=== PATIENT | male | born 1975 | race Caucasian/White ===

== ENCOUNTER 2017-03-27 19:53 | Emergency (ER) | payer BC ==
--- NOTE | 2017-03-27 20:10 | EDM.PDOC ---
ED HPI GENERAL MEDICAL PROBLEM - General Chief Complaint: Upper Extremity Injury/Pain Stated Complaint: SMASHED RT HAND Time Seen by Provider: 03/27/17 20:09 Source of Information: Reports: Patient - History of Present Illness INITIAL COMMENTS - FREE TEXT/NARRATIVE: HISTORY AND PHYSICAL: History of present illness: Patient presents after a crush injury of his hand, right hand was crushed on a counterweight in a cattle trailer this morning, he completed his work day and presents as such her limb is neurovascularly intact pulses 2+ No fever nausea vomiting chills sweats no other injury there is abrasion to the back of his hand over the third digit, tetanus status is up-to-date within the last year Review of systems: As per history of present illness and below otherwise all systems reviewed and negative. Past medical history: As per history of present illness and as reviewed below otherwise noncontributory. Surgical history: As per history of present illness and as reviewed below otherwise noncontributory. Social history: No reported history of drug or alcohol abuse. Family history: As per history of present illness and as reviewed below otherwise noncontributory. Physical exam: HEENT: Atraumatic, normocephalic, pupils reactive, negative for conjunctival pallor or scleral icterus, mucous membranes moist, throat clear, neck supple, nontender, trachea midline. Lungs: Clear to auscultation, breath sounds equal bilaterally, chest nontender. Heart: S1S2, regular, negative for clicks, rubs, or JVD. Abdomen: Soft, nondistended, nontender. Negative for masses or hepatosplenomegaly. Negative for costovertebral tenderness. Pelvis: Stable nontender. Genitourinary: Deferred. Rectal: Deferred. Extremities: Atraumatic, negative for cords or calf pain. Neurovascular unremarkable. Neuro: Awake, alert, oriented. Cranial nerves II through XII unremarkable. Cerebellum unremarkable. Motor and sensory unremarkable throughout. Exam nonfocal. Diagnostics: [Right hand 3 views] Therapeutics: [] Impression: [Right hand pain] Definitive disposition and diagnosis as appropriate pending reevaluation and review of above. Right Hand Pain Score (Numeric/FACES): 8 - Related Data Allergies Allergy/AdvReac Type Severity Reaction Status Date / Time Bleach (Sodium Hypochlorite) Allergy Hives Verified 03/27/17 20:07 ciprofloxacin Allergy Rash Verified 03/27/17 20:07 cipro Allergy Rash Uncoded 03/27/17 20:07 Home Meds: Home Meds . [No Known Home Meds] 03/27/17 [History] Review of Systems - Review of Systems Review Of Systems: ROS reveals no pertinent complaints other than HPI. ED EXAM, GENERAL - Physical Exam Exam: See Below Course - Vital Signs Last Recorded V/S: Last Vital Signs Temp 36.4 C 03/27/17 20:02 Pulse 90 03/27/17 20:02 Resp 17 03/27/17 20:02 BP 122/98 H 03/27/17 20:02 Pulse Ox 95 03/27/17 20:02 - Orders/Labs/Meds Orders: Active Orders 24 hr Category Date Time Status Hand Comp Min 3V Rt [CR] Stat Exams 03/27/17 20:09 Taken Departure - Departure Time of Disposition: 20:49 Disposition: Home, Self-Care 01 Condition: Good Clinical Impression: Contusion, Abrasion - Discharge Information Referrals: PCP,None [Primary Care Provider] - Forms: ED Department Discharge Additional Instructions: Splint for comfort Neosporin/Bandage as needed Ibuprofen 400 mg 3 times daily 7-10 days Follow-up with primary care 2 weeks sooner as needed The following information is given to patients seen in the emergency department who are being discharged to home. This information is to outline your options for follow-up care. We provide all patients seen in our emergency department with a follow-up referral. The need for follow-up, as well as the timing and circumstances, are variable depending upon the specifics of your emergency department visit. If you don't have a primary care physician on staff, we will provide you with a referral. We always advise you to contact your personal physician following an emergency department visit to inform them of the circumstance of the visit and for follow-up with them and/or the need for any referrals to a consulting specialist. The emergency department will also refer you to a specialist when appropriate. This referral assures that you have the opportunity for follow-up care with a specialist. All of these measure are taken in an effort to provide you with optimal care, which includes your follow-up. Under all circumstances we always encourage you to contact your private physician who remains a resource for coordinating your care. When calling for follow-up care, please make the office aware that this follow-up is from your recent emergency room visit. If for any reason you are refused follow-up, please contact the [facility] emergency department at and asked to speak to the emergency department charge nurse. - My Orders Last 24 Hours: My Active Orders 03/27/17 20:09 Hand Comp Min 3V Rt [CR] Stat - Assessment/Plan Last 24 Hours: My Active Orders 03/27/17 20:09 Hand Comp Min 3V Rt [CR] Stat
--- NOTE | 2017-03-29 14:06 | CR ---
EXAM DATE: 03/27/17 PATIENT'S AGE: 42 Patient: LORA SOLIZ Facility: [place], [place] Site . Site : 1975 Study: XRay Extremity Right hand [id number]/28/2017 8:28:56 PM Ordering Physician: Pham Bowens Final Report: INDICATION: pain INDICATION: Right hand pain. TECHNIQUE: Three view. Findings: No fracture is seen of the right hand. The joint spaces appear relatively well preserved. IMPRESSION: No acute fracture is seen of the right hand. Dictated by Nikhil Walker MD @ 03/27/2017 8:46:38 PM Dictated by: Nikhil Walker MD @ 03/27/2017 20:46:56 (Electronic Signature) Report Signed by Proxy. [facility]
== END 2017-03-27 21:12 | disposition home or self-care (01) ==
LOC: MW.ED 19:53
DX: S60.221A Contusion of right hand, initial encounter (principal); S60.511A Abrasion of right hand, initial encounter; Z88.1 Allergy status to other antibiotic agents; Z91.09 Other allergy status, other than to drugs and biological substances; W23.1XXA Caught, crushed, jammed, or pinched between stationary objects, initial encounter
CPT/HCPCS: 73130-26-RT; 73130-RT; 99281; 99283

== ENCOUNTER 2017-10-19 23:54 | Observation (INO) | payer BC ==
--- NOTE | 2017-10-20 00:11 | EDM.PDOC ---
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 He states this is a chronic condition followed by podiatry S[facility]. Recommended admission and IV antibiotics and further workup he flatly refuses stating he has dealt with this for years and requires antibiotics and pain medicine he prefers care for this on his own at home and not be admitted. I recommended as he is living here in [place] now he should establish with podiatry and/or return if symptoms persist or worsen No fever nausea vomiting chills sweats he only complains of the foot pain 8 out of 10 nonradiating ] Review of systems: As per history of present illness and below otherwise all systems reviewed and negative. Past medical history: As per history of present illness and as reviewed below otherwise noncontributory. Surgical history: As per history of present illness and as reviewed below otherwise noncontributory. Social history: No reported history of drug or alcohol abuse. Family history: As per history of present illness and as reviewed below otherwise noncontributory. Physical exam: HEENT: Atraumatic, normocephalic, pupils reactive, negative for conjunctival pallor or scleral icterus, mucous membranes moist, throat clear, neck supple, nontender, trachea midline. Lungs: Clear to auscultation, breath sounds equal bilaterally, chest nontender. Heart: S1S2, regular, negative for clicks, rubs, or JVD. Abdomen: Soft, nondistended, nontender. Negative for masses or hepatosplenomegaly. Negative for costovertebral tenderness. Pelvis: Stable nontender. Genitourinary: Deferred. Rectal: Deferred. Extremities: Atraumatic, negative for cords or calf pain. Neurovascular unremarkable. Neuro: Awake, alert, oriented. Cranial nerves II through XII unremarkable. Cerebellum unremarkable. Motor and sensory unremarkable throughout. Exam nonfocal. Diagnostics: [X-ray right foot ] Therapeutics: Salineno 5 mg by mouth now Bactrim double strength by mouth twice a day #20 no refill ] Some soaks 3 times a day Patient refused admission Impression: [ cellulitis right foot ] Definitive disposition and diagnosis as appropriate pending reevaluation and review of above. right foot Pain Score (Numeric/FACES): 10 - Related Data Allergies Allergy/AdvReac Type Severity Reaction Status Date / Time Bleach (Sodium Hypochlorite) Allergy Hives Verified 10/20/17 00:08 ciprofloxacin Allergy Rash Verified 10/20/17 00:08 cipro Allergy Rash Uncoded 10/20/17 00:08 Home Meds: Home Meds . [No Known Home Meds] 03/27/17 [History] Past Medical History - Past Health History Medical/Surgical History: Denies Medical/Surgical History Musculoskeletal History: Reports: None - Infectious Disease History Infectious Disease History: Reports: Chicken Pox - Past Surgical History Other Musculoskeletal Surgeries/Procedures:: back surgery Social & Family History - Family History Family Medical History: Noncontributory - Caffeine Use Caffeine Use: Reports: Coffee Review of Systems - Review of Systems Review Of Systems: See Below ED EXAM, GENERAL - Physical Exam Exam: See Below Course - Vital Signs Last Recorded V/S: Last Vital Signs Temp 98 F 10/19/17 23:54 Pulse 87 10/19/17 23:54 Resp 18 10/19/17 23:54 BP 113/73 10/19/17 23:54 Pulse Ox 94 L 10/19/17 23:54 - Orders/Labs/Meds Orders: Active Orders 24 hr Category Date Time Status Foot Comp Min 3V Rt [CR] Stat Exams 10/20/17 00:09 Taken CULTURE WOUND [RM] Stat Lab 10/20/17 00:41 Ordered URIC ACID [CHEM] Stat Lab 10/20/17 00:19 Received Labs: Laboratory Tests 10/20/17 Range/Units 00:19 WBC 11.29 H (4.0-11.0) K/uL RBC 5.00 (4.50-5.90) M/uL Hgb 16.1 (13.0-17.0) g/dL Hct 47.6 (38.0-50.0) % MCV 95.2 (80.0-98.0) fL MCH 32.2 H (27.0-32.0) pg MCHC 33.8 (31.0-37.0) g/dL RDW Std Deviation 45.7 (28.0-62.0) fl RDW Coeff of Waqar 13 (11.0-15.0) % Plt Count 166 (150-400) K/uL MPV 11.00 (7.40-12.00) fL Neut % (Auto) 61.9 (48.0-80.0) % Lymph % (Auto) 27.0 (16.0-40.0) % Martin % (Auto) 8.7 (0.0-15.0) % Eos % (Auto) 2.1 (0.0-7.0) % Baso % (Auto) 0.3 (0.0-1.5) % Neut # (Auto) 7.0 H (1.4-5.7) K/uL Lymph # (Auto) 3.1 H (0.6-2.4) K/uL Martin # (Auto) 1.0 H (0.0-0.8) K/uL Eos # (Auto) 0.2 (0.0-0.7) K/uL Baso # (Auto) 0.0 (0.0-0.1) K/uL Meds: Medications Discontinued Medications Generic Name Dose Route Start Last Admin Trade Name Freq PRN Reason Stop Dose Admin Hydrocodone Bitart/Acetaminophen 1 tab 10/20/17 00:40 Salineno 325-5 Mg PO 10/20/17 00:41 ONETIME ONE Departure - Departure Time of Disposition: 00:45 Disposition: Home, Self-Care 01 Condition: Good Clinical Impression: Cellulitis, Foot pain - Discharge Information Referrals: PCP,None [Primary Care Provider] - Forms: ED Department Discharge Additional Instructions: Medication as prescribed Return if symptoms persist or worsen Follow-up with podi, call number below to schedule appropriate follow-up [facility] Primary Care - Podiatry [address] [place] [address] The following information is given to patients seen in the emergency department who are being discharged to home. This information is to outline your options for follow-up care. We provide all patients seen in our emergency department with a follow-up referral. The need for follow-up, as well as the timing and circumstances, are variable depending upon the specifics of your emergency department visit. If you don't have a primary care physician on staff, we will provide you with a referral. We always advise you to contact your personal physician following an emergency department visit to inform them of the circumstance of the visit and for follow-up with them and/or the need for any referrals to a consulting specialist. The emergency department will also refer you to a specialist when appropriate. This referral assures that you have the opportunity for follow-up care with a specialist. All of these measure are taken in an effort to provide you with optimal care, which includes your follow-up. Under all circumstances we always encourage you to contact your private physician who remains a resource for coordinating your care. When calling for follow-up care, please make the office aware that this follow-up is from your recent emergency room visit. If for any reason you are refused follow-up, please contact the [facility] emergency department at and asked to speak to the emergency department charge nurse. - My Orders Last 24 Hours: My Active Orders 10/20/17 00:09 Foot Comp Min 3V Rt [CR] Stat 10/20/17 00:19 URIC ACID [CHEM] Stat 10/20/17 00:41 CULTURE WOUND [RM] Stat - Assessment/Plan Last 24 Hours: My Active Orders 10/20/17 00:09 Foot Comp Min 3V Rt [CR] Stat 10/20/17 00:19 URIC ACID [CHEM] Stat 10/20/17 00:41 CULTURE WOUND [RM] Stat
[2017-10-20] MEDS ORDERED: Acetaminophen/HYDROcodone 325-5 MG Tab PO ONE (00:40)
[2017-10-20] MEDS ORDERED: Sodium Chloride 0.9% 1,000 ML IV SCH (01:00)
[2017-10-20] MEDS ORDERED: Morphine 2 MG/ML Syringe IVPUSH ONE (01:13)
[2017-10-20 01:14] LABS: CHLORIDE,CL 103 mmol/L (98-107); SODIUM,NA 138 mmol/L (136-148)
[2017-10-20] MEDS ORDERED: Clindamycin Phosphate in D5W 50 ML IV ONE (02:43)
[2017-10-20] MEDS ORDERED: Clindamycin Phosphate in D5W 300 MG in Premix Bag 1 BAG IV ONE ×2 (02:53)
[2017-10-20] MEDS ORDERED: Acetaminophen/oxyCODONE 325-5 MG Tab PO PRN (04:03)
[2017-10-20] MEDS ORDERED: Lactated Ringers 1,000 ML IV SCH (04:15)
[2017-10-20] MEDS: Morphine 4 MG/ML Syringe IVPUSH PRN ×3 (04:20→21:18)
[2017-10-20] MEDS: Piperacillin/Tazobactam 2.25 GM in Sodium Chloride 0.9% 50 ML IV SCH ×2 (04:24→10:36)
[2017-10-20] MEDS: Nicotine 14 MG/24 Hr Patch TRDERM SCH (04:24)
[2017-10-20 05:43] LABS: CHLORIDE,CL 104 mmol/L (98-107); SODIUM,NA 139 mmol/L (136-148)
--- NOTE | 2017-10-20 07:48 | PCM.HP ---
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 He didn't noticed the pain right away but it started to increase with noticed more bright redness than usual to his toes. He denies fevers, chills, rigors, chest pain or SOB. No calf pain or tenderness. No edema. He reports he puts bacitracin and non-adherent pads on his toes daily to protect them. Recently he did use some coban type material to secure the dressing and then he noticed some burning sensation to his skin after he used this. He stopped using this wrap a few days ago. He denies any purulent drainage from any open ulcerated areas. He currently is living here, but when he was back home he followed regularly with a [employer], but has not seen one in "awhile." He denies CAD, DM. He does smoke 1/2 to 1 ppd of cigarettes. No alcohol use or recreational drug use. In the ED leukocytosis noted at 11,290, BMP WNL. VS stable, afebrile. Wound culture and BC obtained. 3V foot xray obtained which revealed amputation of the 3rd toe at the metatarsophalangeal joint. No focal osteopenia to suggest osteomyelitis. Consider MRI or 3 phase bone scan if clinically indicated as these are both more sensitive for the evaluation of osteomyelitis. He was admitted observation for cellulitis and foot ulcerations. right foot Pain Score (Numeric/FACES): 10 - Related Data Allergies/Adverse Reactions: Allergies Allergy/AdvReac Type Severity Reaction Status Date / Time Bleach (Sodium Hypochlorite) Allergy Hives Verified 10/20/17 00:08 ciprofloxacin Allergy Rash Verified 10/20/17 00:08 cipro Allergy Rash Uncoded 10/20/17 00:08 Home Medications: Home Meds . [No Known Home Meds] 03/27/17 [History] Past Medical History - Past Health History Medical/Surgical History: Denies Medical/Surgical History Cardiovascular History: Reports: None. Denies: CAD, High Cholesterol, Hypertension, VT Respiratory History: Reports: None. Denies: COPD, PE Gastrointestinal History: Reports: None. Denies: GERD, GI Bleed Genitourinary History: Reports: None. Denies: Chronic Renal Insuffiency Musculoskeletal History: Reports: None Neurological History: Reports: None. Denies: CVA, TIA Endocrine/Metabolic History: Reports: None. Denies: Diabetes, Type II - Infectious Disease History Infectious Disease History: Reports: Chicken Pox - Past Surgical History Neurological Surgical History: Reports: Lumbar Spine (discectomy unsure of exact location.), Other (See Below) (amputation of 4th toe) Other Musculoskeletal Surgeries/Procedures:: back surgery Social & Family History - Family History Family Medical History: Noncontributory - Tobacco Use Smoking Status *Q: Current Every Day Smoker Years of Tobacco use: 20 Packs/Tins Daily: 0.5 Second Hand Smoke Exposure: No - Caffeine Use Caffeine Use: Reports: Coffee - Alcohol Use Alcohol Use History: No - Recreational Drug Use Recreational Drug Use: No - Living Situation & Occupation Occupation: Employed H&P Review of Systems - Review of Systems: Review Of Systems: See Below General: Reports: No Symptoms. Denies: Fever, Chills, Malaise, Weakness HEENT: Reports: No Symptoms. Denies: Headaches, Sinus Congestion, Sore Throat Pulmonary: Reports: No Symptoms. Denies: Shortness of Breath Cardiovascular: Reports: No Symptoms. Denies: Claudication Gastrointestinal: Reports: No Symptoms. Denies: Abdominal Pain, Black Stool, Bloody Stool, Nausea, Vomiting Genitourinary: Reports: No Symptoms. Denies: Dysuria, Frequency, Burning Musculoskeletal: Reports: Other (R foot pain). Denies: Neck Pain Skin: Reports: Erythema (R foot mainly to toes), Wound Neurological: Reports: No Symptoms Hematologic/Lymphatic: Reports: No Symptoms Immunologic: Reports: No Symptoms Exam - Exam Exam: See Below - Vital Signs Vital Signs: Last Vital Signs Temp 98 F 10/19/17 23:54 Pulse 78 10/20/17 03:00 Resp 18 10/20/17 03:00 BP 106/71 10/20/17 03:00 Pulse Ox 95 10/20/17 03:00 Weight: 82.4 kg - Exam General: Alert, Oriented, Cooperative HEENT: Conjunctiva Clear, Mucosa Moist & [place], Posterior Pharynx Clear Neck: Supple, Trachea Midline, 2 Lungs: Clear to Auscultation, Normal Respiratory Effort Cardiovascular: Regular Rate, Regular Rhythm GI/Abdominal Exam: Normal Bowel Sounds, Soft, Non-Tender, No Organomegaly, No Distention, No Abnormal Bruit, No Mass, Pelvis Stable Back Exam: Normal Inspection, Full Range of Motion, NT Extremities: Normal Range of Motion, No Pedal Edema Skin: Wound (multiple small abrasions to 2nd and 3rd toes no fluctuance noted. No obvious drainage. Large amount of bacitracin on toes from patient application with telfa dressing in place. Great toe spared. Port wine sharri noted. No erythema noted to dorsum of foot. Scant edema to toes. No necrotic tissue noted ) Neuro Extensive - Mental Status: Alert, Oriented x3, Normal Mood/Affect, Normal Cognition Neuro Extensive - Motor, Sensory, Reflexes: CN II-XII Intact Psychiatric: Alert, Normal Affect, Normal Mood - Patient Data Lab Results Last 24 hrs: Laboratory Results - last 24 hr 10/20/17 10/20/17 10/20/17 Range/Units 00:19 00:19 00:40 WBC 11.29 H (4.0-11.0) K/uL RBC 5.00 (4.50-5.90) M/uL Hgb 16.1 (13.0-17.0) g/dL Hct 47.6 (38.0-50.0) % MCV 95.2 (80.0-98.0) fL MCH 32.2 H (27.0-32.0) pg MCHC 33.8 (31.0-37.0) g/dL RDW Std Deviation 45.7 (28.0-62.0) fl RDW Coeff of Waqar 13 (11.0-15.0) % Plt Count 166 (150-400) K/uL MPV 11.00 (7.40-12.00) fL Neut % (Auto) 61.9 (48.0-80.0) % Lymph % (Auto) 27.0 (16.0-40.0) % [place] % (Auto) 8.7 (0.0-15.0) % Eos % (Auto) 2.1 (0.0-7.0) % Baso % (Auto) 0.3 (0.0-1.5) % Neut # (Auto) 7.0 H (1.4-5.7) K/uL Lymph # (Auto) 3.1 H (0.6-2.4) K/uL [place] # (Auto) 1.0 H (0.0-0.8) K/uL Eos # (Auto) 0.2 (0.0-0.7) K/uL Baso # (Auto) 0.0 (0.0-0.1) K/uL Nucleated RBC % /100WBC Nucleated RBCs # K/uL Sodium 138 (136-148) mmol/L Potassium 3.5 (3.5-5.1) mmol/L Chloride 103 (98-107) mmol/L Carbon Dioxide 26.6 (21.0-32.0) mmol/L BUN 18 (7.0-18.0) mg/dL Creatinine 1.1 (0.8-1.3) mg/dL Est Cr Clr Drug Dosing 92.22 mL/min Estimated GFR (MDRD) > 60.0 ml/min Glucose 122 H (74-106) mg/dL Uric Acid 5.2 (2.6-7.2) mg/dL Calcium 8.6 (8.5-10.1) mg/dL Total Bilirubin 0.4 (0.2-1.0) mg/dL AST 25 (15-37) IU/L ALT 35 (14-63) IU/L Alkaline Phosphatase 85 (46-116) U/L Total Protein 7.9 (6.4-8.2) g/dL Albumin 4.1 (3.4-5.0) g/dL Globulin 3.8 H (2.0-3.5) g/dL Albumin/Globulin Ratio 1.1 L (1.3-2.8) 10/20/17 10/20/17 Range/Units 05:08 05:08 WBC 10.04 (4.0-11.0) K/uL RBC 4.69 (4.50-5.90) M/uL Hgb 15.0 (13.0-17.0) g/dL Hct 44.4 (38.0-50.0) % MCV 94.7 (80.0-98.0) fL MCH 32.0 (27.0-32.0) pg MCHC 33.8 (31.0-37.0) g/dL RDW Std Deviation 46.8 (28.0-62.0) fl RDW Coeff of Waqar 14 (11.0-15.0) % Plt Count 141 L (150-400) K/uL MPV 11.30 (7.40-12.00) fL Neut % (Auto) 60.8 (48.0-80.0) % Lymph % (Auto) 28.3 (16.0-40.0) % [place] % (Auto) 8.5 (0.0-15.0) % Eos % (Auto) 2.1 (0.0-7.0) % Baso % (Auto) 0.3 (0.0-1.5) % Neut # (Auto) 6.1 H (1.4-5.7) K/uL Lymph # (Auto) 2.8 H (0.6-2.4) K/uL [place] # (Auto) 0.9 H (0.0-0.8) K/uL Eos # (Auto) 0.2 (0.0-0.7) K/uL Baso # (Auto) 0.0 (0.0-0.1) K/uL Nucleated RBC % 0.0 /100WBC Nucleated RBCs # 0 K/uL Sodium 139 (136-148) mmol/L Potassium 3.4 L (3.5-5.1) mmol/L Chloride 104 (98-107) mmol/L Carbon Dioxide 28.3 (21.0-32.0) mmol/L BUN 16 (7.0-18.0) mg/dL Creatinine 1.1 (0.8-1.3) mg/dL Est Cr Clr Drug Dosing 92.22 mL/min Estimated GFR (MDRD) > 60.0 ml/min Glucose 144 H (74-106) mg/dL Uric Acid (2.6-7.2) mg/dL Calcium 8.4 L (8.5-10.1) mg/dL Total Bilirubin (0.2-1.0) mg/dL AST (15-37) IU/L ALT (14-63) IU/L Alkaline Phosphatase (46-116) U/L Total Protein (6.4-8.2) g/dL Albumin (3.4-5.0) g/dL Globulin (2.0-3.5) g/dL Albumin/Globulin Ratio (1.3-2.8) Result Diagrams: 10/20/17 05:08 10/20/17 05:08 *Q Meaningful Use (ADM) - VTE Risk Assess *Q Each Risk Factor Represents 1 Point: Age 41 - 59 years, Obesity ( BMI > 25 kg/m2 ) Total Score 1 Point Risk Factors: 2 Each Risk Factor Represents 2 Points: None Total Score 2 Point Risk Factors: 0 Each Risk Factor Represents 3 Points: None Total Score 3 Point Risk Factors: 0 Each Risk Factor Represents 5 Points: None Total Score 5 Point Risk Factors: 0 Venous Thromboembolism Risk Factor Score *Q: 2 - Problem List (1) Cellulitis SNOMED Code(s): 454817539 ICD Code: L03.90 - CELLULITIS, UNSPECIFIED Status: Acute Current Visit: Yes Qualifiers: Site of cellulitis: extremity Site of cellulitis of extremity: lower extremity Laterality: right Qualified Code(s): L03.115 - Cellulitis of right lower limb (2) Chronic ulcer of right foot SNOMED Code(s): 302389663 ICD Code: L97.519 - NON-PRS CHRONIC ULCER OTH PRT RIGHT FOOT W UNSP SEVERITY Status: Chronic Current Visit: Yes Qualifiers: Non-pressure ulcer stage: limited to breakdown of skin Qualified Code(s): L97.511 - Non-pressure chronic ulcer of other part of right foot limited to breakdown of skin (3) Foot pain SNOMED Code(s): 59457602 ICD Code: M79.673 - PAIN IN UNSPECIFIED FOOT Status: Acute Current Visit : Yes Qualifiers: Laterality: right Qualified Code(s): M79.671 - Pain in right foot Problem List Initiated/Reviewed/Updated: Yes Orders Last 24hrs: Active Orders 24 hr Category Date Time Status Admission Status [Patient Status] [ADT] Stat ADT 10/20/17 02:30 Active Regular Diet [DIET] Diet 10/20/17 Breakfast Active Foot Comp Min 3V Rt [CR] Stat Exams 10/20/17 00:09 Taken CULTURE BLOOD [BC] Stat Lab 10/20/17 01:08 Received CULTURE BLOOD [BC] Stat Lab 10/20/17 01:13 Received CULTURE WOUND [RM] Stat Lab 10/20/17 00:41 Ordered VANCOMYCIN TROUGH [CHEM] Timed Lab 10/21/17 08:30 Ordered Acetaminophen/oxyCODONE [Percocet 325-5 MG] Med 10/20/17 04:03 Active 1 tab PO Q6H PRN Lactated Ringers [Ringers, Lactated] 1,000 ml Med 10/20/17 04:15 Active IV ASDIRECTED Morphine Med 10/20/17 03:59 Active 4 mg IVPUSH Q4H PRN Nicotine [Habitrol] Med 10/20/17 04:00 Active 14 mg TRDERM DAILY Piperacillin/Tazobactam [Zosyn] 2.25 gm Med 10/20/17 04:15 Active Sodium Chloride 0.9% [Normal Saline] 50 ml IV Q6H Vancomycin Pharmacy to Dose [Pharmacy to Dose - Med 10/20/17 04:15 Active Vancomycin] 1 dose .XX ASDIRECTED Vancomycin [Vancocin] 1 gm Med 10/20/17 09:30 Active Sodium Chloride 0.9% [Normal Saline] 250 ml IV Q8H Blood Culture x2 Reflex Set [OM.PC] Stat Oth 10/20/17 00:59 Ordered Medication Orders Piperacillin Sod/Tazobactam (Sod 2.25 gm/ Sodium Chloride) 50 mls @ 100 mls/hr IV Q6H [facility] Last Admin: 10/20/17 04:24 Dose: 100 mls/hr Lactated Ringer's (Ringers, Lactated) 1,000 mls @ 125 mls/hr IV ASDIRECTED JESSY Last Admin: 10/20/17 04:24 Dose: 125 mls/hr Vancomycin HCl 1 gm/ Sodium (Chloride) 250 mls @ 166.667 mls/hr IV Q8H [facility] Morphine Sulfate (Morphine) 4 mg IVPUSH Q4H PRN PRN Reason: Pain Last Admin: 10/20/17 04:20 Dose: 4 mg Nicotine (Habitrol) 14 mg TRDERM DAILY [facility] Last Admin: 10/20/17 04:24 Dose: 14 mg Oxycodone/Acetaminophen (Percocet 325-5 Mg) 1 tab PO Q6H PRN PRN Reason: Pain Last Admin: 10/20/17 05:28 Dose: 1 tab Vancomycin HCl (Pharmacy To Dose - Vancomycin) 1 dose .XX ASDIRECTED [facility] Assessment/Plan Comment:: This 42 year old male admitted with cellulitis and R foot pain 1. Cellulitis: R foot. Chronic hx of ulcerations to R foot and toes. Has 4th toe amputation from past. Spoke with Dr Mason podiatry. He is unavailable today or tomorrow to see patient. But if patient is discharged home he could see him in the clinic tomorrow afternoon or in house consult Wednesday morning. Will consult wound care. Leukocytosis improved to 10,040 today. Vancomycin and Zosyn started. Afebrile. BC and wound cultures pending. Will obtain MRI of R foot today. Elevated R extremity and limit weight bearing on this foot. Pain continues today. Will increase Percocet and monitor. VTE prophylaxis: SCDs. Dispo: 1-2 days pending improvement.
[2017-10-20] MEDS: Acetaminophen/oxyCODONE 325-5 MG Tab PO PRN ×2 (10:36→18:10)
[2017-10-20] MEDS ORDERED: Temazepam 15 MG Cap PO PRN (10:46)
[2017-10-20] MEDS: Ondansetron 4 MG Tab.DIS PO PRN (12:58)
[2017-10-20] MEDS: Gabapentin 100 MG Cap PO SCH ×2 (12:59→21:18)
[2017-10-20] MEDS ORDERED: Gadobenate Dimeglumine 529 MG/ML 20 ML SDV IVPUSH STA (13:21)
--- NOTE | 2017-10-20 15:25 | CR ---
EXAM DATE: 10/20/17 PATIENT'S AGE: 42 Patient: LORA SOLIZ Facility: [place], [place] Site . Site : 1975 Study: XRay Extremity Right [id number]/23/2018 12:38:12 AM Ordering Physician: Doctor Joseph Final Report: HISTORY: Right foot pain and infection. History of toe amputation. FINDINGS: Three radiographs of the right foot demonstrate amputation of the 3rd toe at the metatarsophalangeal joint. No acute fracture or dislocation seen. No focal osteopenia seen to suggest osteomyelitis. There is mild degenerative changes of 1st metatarsophalangeal joint. IMPRESSION: 1. Amputation of the 3rd toe at the metatarsophalangeal joint. 2. No focal osteopenia to suggest osteomyelitis. Consider MRI or 3 phase bone scan if clinically indicated as these are both more sensitive for the evaluation of osteomyelitis. Dictated by Carol Aldana MD @ 10/20/2017 12:45:25 AM Dictated by: Carol Aldana MD @ 10/20/2017 00:45:31 (Electronic Signature) Report Signed by Proxy. ANGELITO
[2017-10-20] MEDS: Piperacillin/Tazobactam 3.375 GM in Sodium Chloride 0.9% 50 ML IV SCH (17:24)
[2017-10-21] MEDS: Piperacillin/Tazobactam 3.375 GM in Sodium Chloride 0.9% 50 ML IV SCH ×3 (01:01→16:53)
[2017-10-21] MEDS: Gabapentin 100 MG Cap PO SCH ×3 (05:30→21:28)
[2017-10-21 06:02] LABS: CHLORIDE,CL 106 mmol/L (98-107); SODIUM,NA 140 mmol/L (136-148)
[2017-10-21] MEDS: Ondansetron 4 MG Tab.DIS PO PRN (07:54)
[2017-10-21] MEDS: Nicotine 14 MG/24 Hr Patch TRDERM SCH (07:59)
--- NOTE | 2017-10-21 09:32 | MR ---
EXAMINATION: MRI of the right foot with and without contrast HISTORY: Ulcer COMPARISON: Radiograph dated 10/20/2017 TECHNIQUE: Multiplanar and multisequence imaging obtained through the right foot before and following the administration of 16 mL MultiHance. FINDINGS: There is moderate subcutaneous edema along the dorsal lateral aspect of the forefoot. Previ ous amputation of the third digit is noted. No definitive bone marrow edema or enhancement is identif ied. Plantar soft tissues appear normal. The Lisfranc ligament is intact. Joint spaces are grossly pr eserved. The ankle mortise and talar dome appear intact. Visualized Achilles tendon appears normal. A nterior and posterior talofibular and tibiofibular ligaments are intact. IMPRESSION: 1. Moderate subcutaneous edema along the dorsal and lateral aspect of the forefoot consistent with ce llulitis without evidence of underlying osteomyelitis.
[2017-10-21] MEDS: Acetaminophen/oxyCODONE 325-5 MG Tab PO PRN ×2 (11:21→16:51)
--- NOTE | 2017-10-21 11:42 | PCM.PN ---
- General Info Date of Service: 10/21/17 Admission Dx/Problem (Free Text): Admission Diagnosis/Problem Admission Diagnosis/Problem Cellulitis Subjective Update: Continues to have pain to R foot, slight improvement. No chest pain or shortness of breath. Functional Status: Reports: Pain Controlled, Tolerating Diet, Ambulating, Urinating - Review of Systems General: Reports: No Symptoms. Denies: Fever, Weakness, Fatigue, Malaise HEENT: Reports: No Symptoms. Denies: Headaches, Sore Throat, Visual Changes Pulmonary: Reports: No Symptoms. Denies: Shortness of Breath Cardiovascular: Reports: No Symptoms. Denies: Chest Pain Gastrointestinal: Reports: No Symptoms. Denies: Abdominal Pain, Nausea, Vomiting Genitourinary: Reports: No Symptoms. Denies: Dysuria, Frequency, Burning Musculoskeletal: Reports: Foot Pain (R foot pain) Skin: Reports: No Symptoms Neurological: Reports: No Symptoms Psychiatric: Reports: No Symptoms - Patient Data Vitals - Most Recent: Last Vital Signs Temp 97.8 F 10/21/17 11:25 Pulse 73 10/21/17 11:25 Resp 20 10/21/17 11:25 BP 113/63 10/21/17 11:25 Pulse Ox 94 L 10/21/17 11:25 Weight - Most Recent: 82.4 kg I&O - Last 24 Hours: Intake & Output 10/20/17 10/21/17 10/21/17 22:59 06:59 14:59 Intake Total 480 900 Output Total 850 1450 Balance -370 -550 Lab Results Last 24 Hours: Laboratory Results - last 24 hr 10/20/17 10/21/17 10/21/17 Range/Units 05:08 05:03 05:03 WBC 8.97 (4.0-11.0) K/uL RBC 4.63 (4.50-5.90) M/uL Hgb 14.8 (13.0-17.0) g/dL Hct 44.4 (38.0-50.0) % MCV 95.9 (80.0-98.0) fL MCH 32.0 (27.0-32.0) pg MCHC 33.3 (31.0-37.0) g/dL RDW Std Deviation 47.8 (28.0-62.0) fl RDW Coeff of Waqar 14 (11.0-15.0) % Plt Count 139 L (150-400) K/uL MPV 11.50 (7.40-12.00) fL Neut % (Auto) 61.5 (48.0-80.0) % Lymph % (Auto) 28.1 (16.0-40.0) % [place] % (Auto) 8.2 (0.0-15.0) % Eos % (Auto) 1.9 (0.0-7.0) % Baso % (Auto) 0.3 (0.0-1.5) % Neut # (Auto) 5.5 (1.4-5.7) K/uL Lymph # (Auto) 2.5 H (0.6-2.4) K/uL [place] # (Auto) 0.7 (0.0-0.8) K/uL Eos # (Auto) 0.2 (0.0-0.7) K/uL Baso # (Auto) 0.0 (0.0-0.1) K/uL Nucleated RBC % 0.0 /100WBC Nucleated RBCs # 0 K/uL ESR 4 (0-14) mm/hr Sodium 140 (136-148) mmol/L Potassium 4.2 (3.5-5.1) mmol/L Chloride 106 (98-107) mmol/L Carbon Dioxide 27.5 (21.0-32.0) mmol/L BUN 11 (7.0-18.0) mg/dL Creatinine 1.1 (0.8-1.3) mg/dL Est Cr Clr Drug Dosing 92.22 mL/min Estimated GFR (MDRD) > 60.0 ml/min Glucose 117 H (74-106) mg/dL Calcium 8.4 L (8.5-10.1) mg/dL Vancomycin Trough (5.0-10.0) ug/mL 10/21/17 Range/Units 08:20 WBC (4.0-11.0) K/uL RBC (4.50-5.90) M/uL Hgb (13.0-17.0) g/dL Hct (38.0-50.0) % MCV (80.0-98.0) fL MCH (27.0-32.0) pg MCHC (31.0-37.0) g/dL RDW Std Deviation (28.0-62.0) fl RDW Coeff of Waqar (11.0-15.0) % Plt Count (150-400) K/uL MPV (7.40-12.00) fL Neut % (Auto) (48.0-80.0) % Lymph % (Auto) (16.0-40.0) % [place] % (Auto) (0.0-15.0) % Eos % (Auto) (0.0-7.0) % Baso % (Auto) (0.0-1.5) % Neut # (Auto) (1.4-5.7) K/uL Lymph # (Auto) (0.6-2.4) K/uL [place] # (Auto) (0.0-0.8) K/uL Eos # (Auto) (0.0-0.7) K/uL Baso # (Auto) (0.0-0.1) K/uL Nucleated RBC % /100WBC Nucleated RBCs # K/uL ESR (0-14) mm/hr Sodium (136-148) mmol/L Potassium (3.5-5.1) mmol/L Chloride (98-107) mmol/L Carbon Dioxide (21.0-32.0) mmol/L BUN (7.0-18.0) mg/dL Creatinine (0.8-1.3) mg/dL Est Cr Clr Drug Dosing mL/min Estimated GFR (MDRD) ml/min Glucose (74-106) mg/dL Calcium (8.5-10.1) mg/dL Vancomycin Trough 13.0 H (5.0-10.0) ug/mL [facility] Results Last 24 Hours: Microbiology 10/20/17 00:41 Wound Culture - Preliminary Toe, Unspecified 10/20/17 01:13 Aerobic Blood Culture - Preliminary Blood - Venous - Lab Draw NO GROWTH AFTER 1 DAY Anaerobic Blood Culture - Preliminary NO GROWTH AFTER 1 DAY 10/20/17 01:08 Aerobic Blood Culture - Preliminary Blood - Venous NO GROWTH AFTER 1 DAY Anaerobic Blood Culture - Preliminary NO GROWTH AFTER 1 DAY Med Orders - Current: Current Medications Gabapentin (Neurontin) 100 mg PO TID JESSY Last Admin: 10/21/17 05:30 Dose: 100 mg Vancomycin HCl 1 gm/ Sodium (Chloride) 250 mls @ 166.667 mls/hr IV Q8H [facility] Last Admin: 10/21/17 09:54 Dose: 166.667 mls/hr Piperacillin Sod/Tazobactam (Sod 3.375 gm/ Sodium Chloride) 50 mls @ 100 mls/ hr IV Q8H [facility] Last Admin: 10/21/17 07:59 Dose: 100 mls/hr Morphine Sulfate (Morphine) 4 mg IVPUSH Q4H PRN PRN Reason: Pain Last Admin: 10/20/17 21:18 Dose: 4 mg Nicotine (Habitrol) 14 mg TRDERM DAILY [facility] Last Admin: 10/21/17 07:59 Dose: 14 mg Ondansetron HCl (Zofran Odt) 4 mg PO Q4H PRN PRN Reason: Nausea/Vomiting Last Admin: 10/21/17 07:54 Dose: 4 mg Oxycodone/Acetaminophen (Percocet 325-5 Mg) 1 - 2 tab PO Q4H PRN PRN Reason: Pain Last Admin: 10/21/17 11:21 Dose: 2 tab Temazepam (Restoril) 15 mg PO BEDTIME PRN PRN Reason: Insomnia Vancomycin HCl (Pharmacy To Dose - Vancomycin) 1 dose .XX ASDIRECTED [facility] Discontinued Medications Hydrocodone Bitart/Acetaminophen ([place] 325-5 Mg) 1 tab PO ONETIME ONE Stop: 10/20/17 00:41 Last Admin: 10/20/17 00:55 Dose: 1 tab Gadobenate Dimeglumine (Multihance) 20 ml IVPUSH ONETIME STA Stop: 10/20/17 13:22 Last Admin: 10/20/17 13:23 Dose: 16 ml Clindamycin Phosphate 300 mg/ (Sodium Chloride) 52 mls @ 100 mls/hr IV ONETIME ONE Stop: 10/20/17 01:31 Last Admin: 10/20/17 02:54 Dose: Not Given Sodium Chloride (Normal Saline) 1,000 mls @ 125 mls/hr IV STAT [facility] Vancomycin HCl 1 gm/ Sodium (Chloride) 250 mls @ 250 mls/hr IV ONETIME ONE Stop: 10/20/17 01:59 Last Admin: 10/20/17 01:27 Dose: 250 mls/hr Clindamycin Phosphate 300 mg/ (Premix) 50 mls @ 150 mls/hr IV ONETIME ONE Stop: 10/20/17 03:12 Last Admin: 10/20/17 02:54 Dose: 150 mls/hr Clindamycin Phosphate (Cleocin In D5w) Confirm Administered Dose 50 mls @ as directed IV .STK-MED ONE Stop: 10/20/17 02:44 Last Admin: 10/20/17 04:25 Dose: Not Given Piperacillin Sod/Tazobactam (Sod 2.25 gm/ Sodium Chloride) 50 mls @ 100 mls/hr IV Q6H [facility] Last Admin: 10/20/17 10:36 Dose: 100 mls/hr Lactated Ringer's (Ringers, Lactated) 1,000 mls @ 125 mls/hr IV ASDIRECTED [facility] Last Admin: 10/20/17 04:24 Dose: 125 mls/hr Vancomycin HCl 1.25 gm/ Sodium (Chloride) 250 mls @ 166.667 mls/hr IV Q12H [facility] Morphine Sulfate (Morphine) 2 mg IVPUSH ONETIME ONE Stop: 10/20/17 01:14 Last Admin: 10/20/17 01:26 Dose: 2 mg Oxycodone/Acetaminophen (Percocet 325-5 Mg) 1 tab PO Q6H PRN PRN Reason: Pain Last Admin: 10/20/17 05:28 Dose: 1 tab - Exam General: Alert, Oriented, Cooperative, No Acute Distress Neck: Supple Lungs: Clear to Auscultation, Normal Respiratory Effort Cardiovascular: Regular Rate, Regular Rhythm GI/Abdominal Exam: Normal Bowel Sounds, Soft, Non-Tender, No Organomegaly, No Distention, No Abnormal Bruit, No Mass, Pelvis Stable Extremities: Normal Range of Motion, No Pedal Edema Wound/Incisions: Erythema Improving (Scant erythema noted with some edema to R foot. Edema +1 non pitting. maceration and small abrasions noted to 2 and 3rd toes and to first metatarsal joint. Port wine stain birthmark within this regin as well obscures acute erythema. Fungal infection to toe nails noted. No fluctuance or draining. patient continues to heavily layer with bacitracin. ) Neurological: No New Focal Deficit Psy/Mental Status: Alert, Normal Affect, Normal Mood - Problem List & Annotations (1) Cellulitis SNOMED Code(s): 049754075 Code(s): L03.90 - CELLULITIS, UNSPECIFIED Status: Acute Current Visit: Yes Qualifiers: Site of cellulitis: extremity Site of cellulitis of extremity: lower extremity Laterality: right Qualified Code(s): L03.115 - Cellulitis of right lower limb (2) Chronic ulcer of right foot SNOMED Code(s): 867367137 Code(s): L97.519 - NON-PRS CHRONIC ULCER OTH PRT RIGHT FOOT W UNSP SEVERITY Status: Chronic Current Visit: Yes Qualifiers: Non-pressure ulcer stage: limited to breakdown of skin Qualified Code(s): L97.511 - Non-pressure chronic ulcer of other part of right foot limited to breakdown of skin (3) Foot pain SNOMED Code(s): 38125503 Code(s): M79.673 - PAIN IN UNSPECIFIED FOOT Status: Acute Current Visit: Yes Qualifiers: Laterality: right Qualified Code(s): M79.671 - Pain in right foot - Problem List Review Problem List Initiated/Reviewed/Updated: Yes - My Orders Last 24 Hours: My Active Orders 10/20/17 10:46 Temazepam [Restoril] 15 mg PO BEDTIME PRN 10/20/17 14:00 Gabapentin [Neurontin] 100 mg PO TID 10/22/17 05:11 BMP [BASIC METABOLIC PANEL,BMP] [CHEM] AM CBC WITH AUTO DIFF [HEME] AM 10/23/17 05:11 BMP [BASIC METABOLIC PANEL,BMP] [CHEM] AM CBC WITH AUTO DIFF [HEME] AM - Plan Plan:: This 42 year old male admitted with cellulitis and R foot pain 1. Cellulitis: Slight improvement, leukocytosis has resolved. R foot. Chronic hx of ulcerations to R foot and toes. Has 4th toe amputation from past. Spoke with Dr Mason podiatry, he will come by this evening to evaluate. Patient denies ever having vascular studies, pulses good to R foot. Continue Vancomycin and Zosyn. Afebrile. BC negative and wound culture APOLLO pending, gram stain reveals oxidase positive gram neg organism. MRI of R foot reveals moderate subcutaneous edema along the dorsal and lateral aspected of the forefoot consistent with cellulitis without evidence of underlying osteomyelitis. Tinea noted to toenails and toes. Will add Diflucan 200 mg IV once today. Dr Mason to evaluate this evening. Elevated R extremity and limit weight bearing on this foot. Pain continues today. Continue Percocet. VTE prophylaxis: SCDs. Dispo: 1-2 days pending improvement.
[2017-10-21] MEDS ORDERED: Fluconazole/Dextrose 200 MG in Premix Bag 1 BAG IV ONE (11:47)
[2017-10-21] MEDS ORDERED: methylPREDNISolone Sodium Succinate 125 MG/2 ML SDV IVPUSH ONE (17:37)
[2017-10-21] MEDS: Morphine 4 MG/ML Syringe IVPUSH PRN (18:27)
--- NOTE | 2017-10-21 21:52 | PCM.CONS ---
H&P History of Present Illness - General Date of Service: 10/21/17 Admit Problem/Dx: Admission Diagnosis/Problem Admission Diagnosis/Problem Cellulitis Source of Information: Patient History Limitations: Reports: No Limitations - History of Present Illness Onset of Symptoms: Reports: Gradual Duration of Symptoms: Reports: Chronic Location: Reports: Lower Extremity, Left Quality: Reports: Sharp Severity: Moderate Improves with: Reports: None, Medication, Rest Worsens with: Reports: None Associated Symptoms: Reports: No Other Symptoms right foot Pain Score (Numeric/FACES): 10 - Related Data Allergies/Adverse Reactions: Allergies Allergy/AdvReac Type Severity Reaction Status Date / Time Bleach (Sodium Hypochlorite) Allergy Hives Verified 10/20/17 00:08 ciprofloxacin Allergy Rash Verified 10/20/17 00:08 cipro Allergy Rash Uncoded 10/20/17 00:08 Home Medications: Home Meds . [No Known Home Meds] 03/27/17 [History] Past Medical History - Past Health History Medical/Surgical History: Denies Medical/Surgical History Cardiovascular History: Reports: None. Denies: CAD, High Cholesterol, Hypertension, MA Respiratory History: Reports: None. Denies: COPD, PE Gastrointestinal History: Reports: None. Denies: GERD, GI Bleed Genitourinary History: Reports: None. Denies: Chronic Renal Insuffiency Musculoskeletal History: Reports: None Neurological History: Reports: None. Denies: CVA, TIA Endocrine/Metabolic History: Reports: None. Denies: Diabetes, Type II - Infectious Disease History Infectious Disease History: Reports: Chicken Pox - Past Surgical History Neurological Surgical History: Reports: Lumbar Spine (discectomy unsure of exact location.), Other (See Below) (amputation of 4th toe) Other Musculoskeletal Surgeries/Procedures:: back surgery Social & Family History - Family History Family Medical History: Noncontributory - Tobacco Use Smoking Status *Q: Current Every Day Smoker Years of Tobacco use: 20 Packs/Tins Daily: 0.5 Second Hand Smoke Exposure: No - Caffeine Use Caffeine Use: Reports: Coffee - Recreational Drug Use Recreational Drug Use: No - Living Situation & Occupation Occupation: Employed H&P Review of Systems - Review of Systems: Review Of Systems: See Below HEENT: Reports: No Symptoms Pulmonary: Reports: No Symptoms Cardiovascular: Reports: No Symptoms Gastrointestinal: Reports: No Symptoms Genitourinary: Reports: No Symptoms Musculoskeletal: Reports: No Symptoms Skin: Reports: No Symptoms Psychiatric: Reports: No Symptoms Neurological: Reports: No Symptoms Hematologic/Lymphatic: Reports: No Symptoms Immunologic: Reports: No Symptoms Exam - Exam Exam: See Below - Vital Signs Vital Signs: Last Vital Signs Temp 36.4 C 10/21/17 16:00 Pulse 66 10/21/17 16:00 Resp 22 H 10/21/17 16:00 BP 134/76 10/21/17 16:00 Pulse Ox 93 L 10/21/17 16:00 Weight: 82.4 kg - Exam Extremities: Other (Port wine stains bilateral feet distally - severe ulceration to lesser toes of right foot.) Peripheral Pulses: 2+: Posterior Tibial (L), Posterior Tibial (R), Dorsalis Pedis (L), Dorsalis Pedis (R) Physical Exam Comments:: On left foot, patient has developed infection of lesser toes to at least the subcutaneous level. The toes are painful to the touch so severely that they cannot be fully assessed without use of anesthesia. They appear to have macerated severely and then developed bacterial infection. - Patient Data Lab Results Last 24 hrs: Laboratory Results - last 24 hr 10/21/17 10/21/17 10/21/17 Range/Units 05:03 05:03 08:20 WBC 8.97 (4.0-11.0) K/uL RBC 4.63 (4.50-5.90) M/uL Hgb 14.8 (13.0-17.0) g/dL Hct 44.4 (38.0-50.0) % MCV 95.9 (80.0-98.0) fL MCH 32.0 (27.0-32.0) pg MCHC 33.3 (31.0-37.0) g/dL RDW Std Deviation 47.8 (28.0-62.0) fl RDW Coeff of Waqar 14 (11.0-15.0) % Plt Count 139 L (150-400) K/uL MPV 11.50 (7.40-12.00) fL Neut % (Auto) 61.5 (48.0-80.0) % Lymph % (Auto) 28.1 (16.0-40.0) % [place] % (Auto) 8.2 (0.0-15.0) % Eos % (Auto) 1.9 (0.0-7.0) % Baso % (Auto) 0.3 (0.0-1.5) % Neut # (Auto) 5.5 (1.4-5.7) K/uL Lymph # (Auto) 2.5 H (0.6-2.4) K/uL [place] # (Auto) 0.7 (0.0-0.8) K/uL Eos # (Auto) 0.2 (0.0-0.7) K/uL Baso # (Auto) 0.0 (0.0-0.1) K/uL Nucleated RBC % 0.0 /100WBC Nucleated RBCs # 0 K/uL Sodium 140 (136-148) mmol/L Potassium 4.2 (3.5-5.1) mmol/L Chloride 106 (98-107) mmol/L Carbon Dioxide 27.5 (21.0-32.0) mmol/L BUN 11 (7.0-18.0) mg/dL Creatinine 1.1 (0.8-1.3) mg/dL Est Cr Clr Drug Dosing 92.22 mL/min Estimated GFR (MDRD) > 60.0 ml/min Glucose 117 H (74-106) mg/dL Calcium 8.4 L (8.5-10.1) mg/dL Vancomycin Trough 13.0 H (5.0-10.0) ug/mL Result Diagrams: 10/21/17 05:03 10/21/17 05:03 [place] Results Last 24 hrs: Microbiology 10/20/17 00:41 Wound Culture - Preliminary Toe, Unspecified 10/20/17 01:13 Aerobic Blood Culture - Preliminary Blood - Venous - Lab Draw NO GROWTH AFTER 1 DAY Anaerobic Blood Culture - Preliminary NO GROWTH AFTER 1 DAY 10/20/17 01:08 Aerobic Blood Culture - Preliminary Blood - Venous NO GROWTH AFTER 1 DAY Anaerobic Blood Culture - Preliminary NO GROWTH AFTER 1 DAY Consult PN Assessment/Plan Procedures: Procedures EMERGENCY DEPT VISIT (03/27/17) X-RAY EXAM OF HAND (03/27/17) (1) Cellulitis SNOMED Code(s): 134865740 Code(s): L03.90 - CELLULITIS, UNSPECIFIED Current Visit: Yes Qualifiers: Site of cellulitis: extremity Site of cellulitis of extremity: lower extremity Laterality: right Qualified Code(s): L03.115 - Cellulitis of right lower limb (2) Foot pain SNOMED Code(s): 59501588 Code(s): M79.673 - PAIN IN UNSPECIFIED FOOT Current Visit: Yes Qualifiers: Laterality: right Qualified Code(s): M79.671 - Pain in right foot (3) Chronic ulcer of right foot SNOMED Code(s): 442919407 Code(s): L97.519 - NON-PRS CHRONIC ULCER OTH PRT RIGHT FOOT W UNSP SEVERITY Current Visit: Yes Qualifiers: Non-pressure ulcer stage: with fat layer exposed Qualified Code(s): L97.512 - Non-pressure chronic ulcer of other part of right foot with fat layer exposed Problem List Initiated/Reviewed/Updated: Yes Plan: 1. Patient examined at bedside. I discussed with patient that I believe he perspires a lot between the toes and that his boots do not get dried out, leading to macerated skin that opens to ulcer development, which in turn leads to bacterial infection. The patient nods and agrees that this scenario has happened repeatedly. 2. Patient to continue antibiotic treatment. 3. I will visit patient tomorrow. Bedside debridement of devitalized tissue from right foot ulcerated toes under local anesthesia is one possibility to be considered. If patient is discharged, the same can be done outpatient in my clinic.
[2017-10-22] MEDS: Piperacillin/Tazobactam 3.375 GM in Sodium Chloride 0.9% 50 ML IV SCH ×2 (00:49→08:30)
[2017-10-22 05:37] LABS: CHLORIDE,CL 106 mmol/L (98-107); SODIUM,NA 139 mmol/L (136-148)
[2017-10-22] MEDS: Gabapentin 100 MG Cap PO SCH (06:09)
[2017-10-22] MEDS ORDERED: Polyethylene Glycol 3350 Powder 17 GM Packet PO ONE (07:49)
[2017-10-22] MEDS: Nicotine 14 MG/24 Hr Patch TRDERM SCH (08:30)
[2017-10-22] MEDS: Acetaminophen/oxyCODONE 325-5 MG Tab PO PRN (08:58)
[2017-10-22] MEDS ORDERED: Docusate Sodium 100 MG Cap PO SCH (09:00)
[2017-10-22] MEDS ORDERED: cefTRIAXone 2 GM in Premix Bag 1 BAG IV ONE (11:25)
--- NOTE | 2017-10-22 11:37 | PCM.DCSUM1 ---
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 He didn't noticed the pain right away but it started to increase with noticed more bright redness than usual to his toes. He denies fevers, chills, rigors, chest pain or SOB. No calf pain or tenderness. No edema. He reports he puts bacitracin and non-adherent pads on his toes daily to protect them. Recently he did use some coban type material to secure the dressing and then he noticed some burning sensation to his skin after he used this. He stopped using this wrap a few days ago. He denies any purulent drainage from any open ulcerated areas. He currently is living here, but when he was back home he followed regularly with a Brake Engineer, but has not seen one in "awhile." He denies CAD, DM. He does smoke 1/2 to 1 ppd of cigarettes. No alcohol use or recreational drug use. In the ED leukocytosis noted at 11,290, BMP WNL. VS stable, afebrile. Wound culture and BC obtained. 3V foot xray obtained which revealed amputation of the 3rd toe at the metatarsophalangeal joint. No focal osteopenia to suggest osteomyelitis. Consider MRI or 3 phase bone scan if clinically indicated as these are both more sensitive for the evaluation of osteomyelitis. He was admitted observation for cellulitis and foot ulcerations. - Discharge Data Discharge Date: 10/22/17 Discharge Disposition: Home, Self-Care 01 Condition: Stable - Discharge Diagnosis/Problem(s) (1) Cellulitis SNOMED Code(s): 749021484 ICD Code: L03.90 - CELLULITIS, UNSPECIFIED Status: Acute Current Visit: Yes Qualifiers: Site of cellulitis: extremity Site of cellulitis of extremity: lower extremity Laterality: right Qualified Code(s): L03.115 - Cellulitis of right lower limb (2) Chronic ulcer of right foot SNOMED Code(s): 121074146 ICD Code: L97.519 - NON-PRS CHRONIC ULCER OTH PRT RIGHT FOOT W UNSP SEVERITY Status: Chronic Current Visit: Yes Qualifiers: Non-pressure ulcer stage: with fat layer exposed Qualified Code(s): L97.512 - Non-pressure chronic ulcer of other part of right foot with fat layer exposed (3) Foot pain SNOMED Code(s): 78544702 ICD Code: M79.673 - PAIN IN UNSPECIFIED FOOT Status: Acute Current Visit : Yes Qualifiers: Laterality: right Qualified Code(s): M79.671 - Pain in right foot - Patient Summary/Data Consults: Consultations 10/20/17 09:25 Consult to Physical Therapy [PT Evaluation and Treatment] [CONS] Routine 10/22/17 07:50 Consult to Physician [CONS] Routine - Patient Instructions Diet: Usual Diet as Tolerated Activity: No Strenuous Activities (Keep shoe off to encouarge drying of foot. No working in boots until cleared by Dr Mason), Rest and Relax Today Driving: Do Not Drive (while taking narcotics) Showering/Bathing: May Shower Wound/Incision Care: Change Dressing Daily (Limit use of bacitracin to toes, allow some drying to occur.) Notify Provider of: Fever, Increased Pain, Swelling and Redness, Drainage, Nausea and/or Vomiting - Discharge Plan Prescriptions/Med Rec: Acetaminophen/oxyCODONE [Percocet 325-5 MG] 1 - 2 tab PO Q4H PRN #20 tablet PRN Reason: Pain Cefdinir 300 mg PO BID #14 capsule Docusate Sodium [Colace] 100 mg PO BID PRN #30 cap PRN Reason: constipation with narcotics Home Medications: Home Meds Acetaminophen/oxyCODONE [Percocet 325-5 MG] 1 - 2 tab PO Q4H PRN #20 tablet [Rx] Cefdinir 300 mg PO BID #14 capsule 10/22/17 [Rx] Docusate Sodium [Colace] 100 mg PO BID PRN #30 cap 10/22/17 [Rx] Patient Handouts: Cefdinir capsules, Acetaminophen; Oxycodone tablets, Cellulitis, Adult, [id number], Docusate capsules Referrals: Hunter Mason DPM [Physician] - 10/26/17 2:00 pm - Discharge Summary/Plan Comment DC Time >30 min.: No Discharge Summary/Plan Comment: Discharge Diagnoses: R foot cellulitis Tirso was admitted and treated with Vancomycin and Zosyn for R foot cellulitis. MRI was obtained to rule out osteomyelitis due to termite inspector presence of these. MRI revealed no osteomyelitis, but R foot cellulitis. No abscess. OBEY returned with Serratia marcescens and enterobacter aerogenes from wound culture. Cefdinir was chosen for home use due to sensitivities and allergies. Dr Mason was consulted and recommended more drying of macerated ulcers. These likely worsened due to recent heavy sweating in boots while working and then patient lathering large amounts of bacitracin on the wounds. Dr Mason will see patient as an outpatient and potentially debride these areas. He was HIGHLY encouraged to decrease amount of bacitracin he is applying and allowing some drying effect to happen to help with healing of these small ulcers. He verbalized understanding. He will be given percocet 5/325 1-2 tabs by mouth every 4-6 hrs PRN pain, #20 tabs, no RF. He has follow up with Dr Mason on Wednesday next week and continue Cefdinir 300 mg BID for 7 days. He is to return to ED or clinic if concerns should arise. - General Info Date of Service: 10/22/17 Admission Dx/Problem (Free Text: Admission Diagnosis/Problem Admission Diagnosis/Problem Cellulitis Subjective Update: Doing well today. Pain is tolerable with percocet. No chest pain, SOB or fevers. No complaints. Functional Status: Reports: Pain Controlled, Tolerating Diet, Ambulating (using wheelchair and going out to smoke), Urinating - Review of Systems General: Reports: No Symptoms. Denies: Fever, Weakness, Fatigue HEENT: Reports: No Symptoms. Denies: Glasses, Sore Throat, Rhinitis, Visual Changes Pulmonary: Reports: No Symptoms. Denies: Shortness of Breath, Cough, Sputum Cardiovascular: Reports: No Symptoms. Denies: Chest Pain, Orthopnea, Edema Gastrointestinal: Reports: No Symptoms. Denies: Abdominal Pain, Nausea, Vomiting Genitourinary: Reports: No Symptoms. Denies: Dysuria, Frequency, Burning Musculoskeletal: Reports: Foot Pain (improving. ) Skin: Reports: No Symptoms Neurological: Reports: No Symptoms Psychiatric: Reports: No Symptoms - Patient Data Vitals - Most Recent: Last Vital Signs Temp 98.8 F 10/22/17 05:00 Pulse 98 05/25/18 09:00 Resp 16 10/22/17 09:00 BP 126/67 10/22/17 09:00 Pulse Ox 94 L 10/22/17 09:00 Weight - Most Recent: 82.4 kg I&O - Last 24 hours: Intake & Output 10/21/17 10/22/17 10/22/17 22:59 06:59 14:59 Intake Total 400 Output Total 900 Balance -500 Lab Results - Last 24 hrs: Laboratory Results - last 24 hr 10/22/17 10/22/17 Range/Units 04:38 04:38 WBC 9.06 (4.0-11.0) K/uL RBC 4.59 (4.50-5.90) M/uL Hgb 14.6 (13.0-17.0) g/dL Hct 43.2 (38.0-50.0) % MCV 94.1 (80.0-98.0) fL MCH 31.8 (27.0-32.0) pg MCHC 33.8 (31.0-37.0) g/dL RDW Std Deviation 44.6 (28.0-62.0) fl RDW Coeff of Waqar 13 (11.0-15.0) % Plt Count 155 (150-400) K/uL MPV 11.40 (7.40-12.00) fL Neut % (Auto) 85.8 H (48.0-80.0) % Lymph % (Auto) 10.8 L (16.0-40.0) % [place] % (Auto) 3.3 (0.0-15.0) % Eos % (Auto) 0.0 (0.0-7.0) % Baso % (Auto) 0.1 (0.0-1.5) % Neut # (Auto) 7.8 H (1.4-5.7) K/uL Lymph # (Auto) 1.0 (0.6-2.4) K/uL [place] # (Auto) 0.3 (0.0-0.8) K/uL Eos # (Auto) 0.0 (0.0-0.7) K/uL Baso # (Auto) 0.0 (0.0-0.1) K/uL Nucleated RBC % 0.0 /100WBC Nucleated RBCs # 0 K/uL Sodium 139 (136-148) mmol/L Potassium 4.0 (3.5-5.1) mmol/L Chloride 106 (98-107) mmol/L Carbon Dioxide 25.8 (21.0-32.0) mmol/L BUN 11 (7.0-18.0) mg/dL Creatinine 1.0 (0.8-1.3) mg/dL Est Cr Clr Drug Dosing 101.45 mL/min Estimated GFR (MDRD) > 60.0 ml/min Glucose 134 H (74-106) mg/dL Calcium 8.9 (8.5-10.1) mg/dL OBEY Results - Last 24 hrs: Microbiology 10/20/17 00:41 Wound Culture - Preliminary Toe, Unspecified Enterobacter Aerogenes Serratia Marcescens 10/20/17 01:13 Aerobic Blood Culture - Preliminary Blood - Venous - Lab Draw NO GROWTH AFTER 2 DAYS Anaerobic Blood Culture - Preliminary NO GROWTH AFTER 2 DAYS 10/20/17 01:08 Aerobic Blood Culture - Preliminary Blood - Venous NO GROWTH AFTER 2 DAYS Anaerobic Blood Culture - Preliminary NO GROWTH AFTER 2 DAYS Med Orders - Current: Current Medications Docusate Sodium (Colace) 100 mg PO BID [facility] Last Admin: 10/22/17 08:30 Dose: 100 mg Gabapentin (Neurontin) 100 mg PO TID [facility] Last Admin: 10/22/17 06:09 Dose: 100 mg Ceftriaxone Sodium/Dextrose 2 (gm/ Premix) 50 mls @ 100 mls/hr IV ONETIME ONE Stop: 10/22/17 11:54 Morphine Sulfate (Morphine) 4 mg IVPUSH Q4H PRN PRN Reason: Pain Last Admin: 10/21/17 18:27 Dose: 4 mg Nicotine (Habitrol) 14 mg TRDERM DAILY [facility] Last Admin: 10/22/17 08:30 Dose: Not Given Ondansetron HCl (Zofran Odt) 4 mg PO Q4H PRN PRN Reason: Nausea/Vomiting Last Admin: 10/21/17 07:54 Dose: 4 mg Oxycodone/Acetaminophen (Percocet 325-5 Mg) 1 - 2 tab PO Q4H PRN PRN Reason: Pain Last Admin: 10/22/17 08:58 Dose: 2 tab Temazepam (Restoril) 15 mg PO BEDTIME PRN PRN Reason: Insomnia Discontinued Medications Hydrocodone Bitart/Acetaminophen ([place] 325-5 Mg) 1 tab PO ONETIME ONE Stop: 10/20/17 00:41 Last Admin: 10/20/17 00:55 Dose: 1 tab Gadobenate Dimeglumine (Multihance) 20 ml IVPUSH ONETIME STA Stop: 10/20/17 13:22 Last Admin: 10/20/17 13:23 Dose: 16 ml Clindamycin Phosphate 300 mg/ (Sodium Chloride) 52 mls @ 100 mls/hr IV ONETIME ONE Stop: 10/20/17 01:31 Last Admin: 10/20/17 02:54 Dose: Not Given Sodium Chloride (Normal Saline) 1,000 mls @ 125 mls/hr IV STAT JESSY Vancomycin HCl 1 gm/ Sodium (Chloride) 250 mls @ 250 mls/hr IV ONETIME ONE Stop: 10/20/17 01:59 Last Admin: 10/20/17 01:27 Dose: 250 mls/hr Clindamycin Phosphate 300 mg/ (Premix) 50 mls @ 150 mls/hr IV ONETIME ONE Stop: 10/20/17 03:12 Last Admin: 10/20/17 02:54 Dose: 150 mls/hr Clindamycin Phosphate (Cleocin In D5w) Confirm Administered Dose 50 mls @ as directed IV .STK-MED ONE Stop: 10/20/17 02:44 Last Admin: 10/20/17 04:25 Dose: Not Given Piperacillin Sod/Tazobactam (Sod 2.25 gm/ Sodium Chloride) 50 mls @ 100 mls/hr IV Q6H [facility] Last Admin: 10/20/17 10:36 Dose: 100 mls/hr Lactated Ringer's (Ringers, Lactated) 1,000 mls @ 125 mls/hr IV ASDIRECTED [facility] Last Admin: 10/20/17 04:24 Dose: 125 mls/hr Vancomycin HCl 1.25 gm/ Sodium (Chloride) 250 mls @ 166.667 mls/hr IV Q12H JESSY Vancomycin HCl 1 gm/ Sodium (Chloride) 250 mls @ 166.667 mls/hr IV Q8H [facility] Last Admin: 10/22/17 09:15 Dose: 166.667 mls/hr Piperacillin Sod/Tazobactam (Sod 3.375 gm/ Sodium Chloride) 50 mls @ 100 mls/ hr IV Q8H JESSY Last Admin: 10/22/17 08:30 Dose: 100 mls/hr Fluconazole 200 mg/ Premix 100 mls @ 100 mls/hr IV ONETIME ONE Stop: 10/21/17 12:46 Last Admin: 10/21/17 12:36 Dose: 100 mls/hr Methylprednisolone Sodium Succinate (Solu-Medrol) 60 mg IVPUSH ONETIME ONE Stop: 10/21/17 17:38 Last Admin: 10/21/17 18:17 Dose: 60 mg Morphine Sulfate (Morphine) 2 mg IVPUSH ONETIME ONE Stop: 10/20/17 01:14 Last Admin: 10/20/17 01:26 Dose: 2 mg Oxycodone/Acetaminophen (Percocet 325-5 Mg) 1 tab PO Q6H PRN PRN Reason: Pain Last Admin: 10/20/17 05:28 Dose: 1 tab Polyethylene Glycol (Miralax) 17 gm PO ONETIME ONE Stop: 10/22/17 07:50 Last Admin: 10/22/17 08:30 Dose: 17 gm Vancomycin HCl (Pharmacy To Dose - Vancomycin) 1 dose .XX ASDIRECTED JESSY - Exam General: Reports: Alert, Oriented, Cooperative, No Acute Distress Neck: Reports: Supple Lungs: Reports: Clear to Auscultation, Normal Respiratory Effort Cardiovascular: Reports: Regular Rate, Regular Rhythm GI/Abdominal Exam: Normal Bowel Sounds, Soft, Non-Tender, No Organomegaly, No Distention, No Abnormal Bruit, No Mass, Pelvis Stable Extremities: Normal Range of Motion Wound/Incisions: Reports: Erythema Improving (R foot cellulitis improving. maceration continues to toes, encouraged to diminish significantly the amount of bacitracin he applys to help with some drying of the wounds. ) Neurological: Reports: No New Focal Deficit Psy/Mental Status: Reports: Alert, Normal Affect, Hallucinations
[2017-10-22] MEDS ORDERED: Cefdinir 300 MG Cap PO ONE (11:58)
== END 2017-10-22 12:45 | disposition home or self-care (01) ==
LOC: MW.ED 23:54 → MW.MS 10-20 02:30
PROVIDERS: ADMIT Internal Medicine; ATTEND Internal Medicine
DX: L03.115 Cellulitis of right lower limb (principal); B96.89 Other specified bacterial agents as the cause of diseases classified elsewhere; L97.512 Non-pressure chronic ulcer of other part of right foot with fat layer exposed; F17.210 Nicotine dependence, cigarettes, uncomplicated; Z79.2 Long term (current) use of antibiotics; Z91.048 Other nonmedicinal substance allergy status; Z89.421 Acquired absence of other right toe(s)
CPT/HCPCS: 36415; 73630; 73720; 80048; 80053; 80202; 84550; 85025; 85652; 87040; 87070; 87077; 87186; 96365; 96367; 96375; 97161; 99284; A9270; A9577; J0696; J1450; J2270; J2543; J2930; J3370; J7050; J7120; 96366; 96376; G0378

== ENCOUNTER 2018-02-07 21:24 | Emergency (ER) | payer BC ==
--- NOTE | 2018-02-07 21:35 | EDM.PDOC ---
<Kia Hagan E - Last Filed: 02/07/18 21:50> ED HPI GENERAL MEDICAL PROBLEM - General Chief Complaint: Lower Extremity Injury/Pain Stated Complaint: RT FOOT INFECTED Time Seen by Provider: 02/07/18 21:35 Source of Information: Reports: Patient History Limitations: Reports: No Limitations - History of Present Illness INITIAL COMMENTS - FREE TEXT/NARRATIVE: HISTORY AND PHYSICAL: History of present illness: Patient is a 42-year-old male who presents to the emergency room with concerns of infection of the right foot. On 10/20/2017, patient was admitted with cellulitis of the right foot. He does have a history of chronic ulceration of the right foot and toes. 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 During this admission Dr Mason (debt collection specialist) was consulted on this case. Patient received IV vancomycin and Zosyn. Patient was discharged and placed on Keflex oral and had several follow-up appointments with Dr. reich in. He states he was healing well and had no recent concerns with healing. He states over the past with 2 days he had noticed some pain and drainage between the second and third toes. Last antibiotic use was approximately 1 month ago. Review of systems: As per history of present illness and below otherwise all systems reviewed and negative. Past medical history: As per history of present illness and as reviewed below otherwise noncontributory. Surgical history: As per history of present illness and as reviewed below otherwise noncontributory. Social history: No reported history of drug or alcohol abuse. Family history: As per history of present illness and as reviewed below otherwise noncontributory. Physical exam: General: Developed and well-nourished 42-year-old male. Alert and oriented. Nontoxic appearing and in no acute distress. HEENT: Atraumatic, normocephalic, pupils equal and reactive bilaterally, negative for conjunctival pallor or scleral icterus, mucous membranes moist, throat clear, neck supple, nontender, trachea midline. No drooling or trismus noted. No meningeal signs Lungs: Clear to auscultation, breath sounds equal bilaterally, chest nontender. Heart: S1S2, regular rate and rhythm without overt murmur Abdomen: Soft, nondistended, nontender. Negative for masses or hepatosplenomegaly. Negative for costovertebral tenderness. Pelvis: Stable nontender. Genitourinary: Deferred. Rectal: Deferred. 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 Skin appears macerated between the 2nd and 3rd toes; crusted green drainage noted. Small circular sore noted to mid toe on the 3rd right digit, with crusted green drainage. Intact, warm, dry. No lesions or rashes noted. Extremities: Atraumatic, moves all per self. Strong pedal and pretibial pulse. Cap refill less than three seconds. He was negative for cords or calf pain. Neurovascular unremarkable. Neuro: Awake, alert, oriented. Cranial nerves II through XII unremarkable. Cerebellum unremarkable. Motor and sensory unremarkable throughout. Exam nonfocal. Notes: MRI of foot cellulitis on 10/20/2017: Moderate subcutaneous edema along the dorsal and lateral aspect of the forefoot consistent with cellulitis without evidence of underlying osteomyelitis. Diagnostics: CBC, CMP, Blood Culture, Wound Culture, Foot X-ray Therapeutics: Impression: Plan: Definitive disposition and diagnosis as appropriate pending reevaluation and review of above. Right Feet Pain Score (Numeric/FACES): 8 - Related Data Allergies Allergy/AdvReac Type Severity Reaction Status Date / Time Bleach (Sodium Hypochlorite) Allergy Hives Verified 02/07/18 23:07 ciprofloxacin Allergy Rash Verified 02/07/18 23:07 cipro Allergy Rash Uncoded 02/07/18 23:07 Past Medical History - Past Health History Medical/Surgical History: Denies Medical/Surgical History Cardiovascular History: Reports: None. Denies: CAD, High Cholesterol, Hypertension, [place] Respiratory History: Reports: None. Denies: COPD, PE Gastrointestinal History: Reports: None. Denies: GERD, GI Bleed Genitourinary History: Reports: None. Denies: Chronic Renal Insuffiency Musculoskeletal History: Reports: None Neurological History: Reports: None. Denies: CVA, TIA Endocrine/Metabolic History: Reports: None. Denies: Diabetes, Type II - Infectious Disease History Infectious Disease History: Reports: Chicken Pox - Past Surgical History Neurological Surgical History: Reports: Lumbar Spine (discectomy unsure of exact location.), Other (See Below) (amputation of 4th toe) Other Musculoskeletal Surgeries/Procedures:: back surgery Social & Family History - Family History Family Medical History: Noncontributory - Caffeine Use Caffeine Use: Reports: Coffee - Living Situation & Occupation Occupation: Employed Course - Vital Signs Last Recorded V/S: Last Vital Signs Temp 36.7 C 02/07/18 21:39 Pulse 102 H 02/07/18 21:39 Resp 16 02/07/18 21:39 BP 131/84 02/07/18 21:39 Pulse Ox 95 02/07/18 21:39 - Orders/Labs/Meds Orders: Active Orders 24 hr Category Date Time Status Foot 2V Rt [CR] Stat Exams 02/07/18 21:49 Taken CULTURE BLOOD [BC] Stat Lab 02/07/18 22:00 Received CULTURE BLOOD [BC] Stat Lab 02/07/18 22:07 Received Sodium Chloride 0.9% [Saline Flush] Med 02/07/18 21:49 Active 10 ml FLUSH ASDIRECTED PRN Sodium Chloride 0.9% [Saline Flush] Med 02/07/18 21:49 Active 2.5 ml FLUSH ASDIRECTED PRN Blood Culture x2 Reflex Set [OM.PC] Stat Oth 02/07/18 21:49 Ordered Saline Lock Insert [OM.PC] Stat Oth 02/07/18 21:49 Ordered Medication Orders Sodium Chloride (Saline Flush) 10 ml FLUSH ASDIRECTED PRN PRN Reason: Keep Vein Open Last Admin: 02/07/18 22:43 Dose: 10 ml Sodium Chloride (Saline Flush) 2.5 ml FLUSH ASDIRECTED PRN PRN Reason: Keep Vein Open Labs: Laboratory Tests 02/07/18 02/07/18 Range/Units 22:00 22:00 WBC 10.20 (4.0-11.0) K/uL RBC 5.04 (4.50-5.90) M/uL Hgb 16.5 (13.0-17.0) g/dL Hct 47.2 (38.0-50.0) % MCV 93.7 (80.0-98.0) fL MCH 32.7 H (27.0-32.0) pg MCHC 35.0 (31.0-37.0) g/dL RDW Std Deviation 45.2 (28.0-62.0) fl RDW Coeff of Waqar 13 (11.0-15.0) % Plt Count 147 L (150-400) K/uL MPV 11.50 (7.40-12.00) fL Neut % (Auto) 60.6 (48.0-80.0) % Lymph % (Auto) 29.4 (16.0-40.0) % Smith % (Auto) 7.3 (0.0-15.0) % Eos % (Auto) 2.3 (0.0-7.0) % Baso % (Auto) 0.4 (0.0-1.5) % Neut # (Auto) 6.2 H (1.4-5.7) K/uL Lymph # (Auto) 3.0 H (0.6-2.4) K/uL Smith # (Auto) 0.7 (0.0-0.8) K/uL Eos # (Auto) 0.2 (0.0-0.7) K/uL Baso # (Auto) 0.0 (0.0-0.1) K/uL Nucleated RBC % 0.0 /100WBC Nucleated RBCs # 0 K/uL Sodium 137 (136-148) mmol/L Potassium 3.9 (3.5-5.1) mmol/L Chloride 101 (98-107) mmol/L Carbon Dioxide 26.5 (21.0-32.0) mmol/L BUN 10 (7.0-18.0) mg/dL Creatinine 1.1 (0.8-1.3) mg/dL Est Cr Clr Drug Dosing 92.22 mL/min Estimated GFR (MDRD) > 60.0 ml/min Glucose 122 H (74-106) mg/dL Calcium 9.1 (8.5-10.1) mg/dL Total Bilirubin 0.4 (0.2-1.0) mg/dL AST 14 L (15-37) IU/L ALT 29 (14-63) IU/L Alkaline Phosphatase 91 (46-116) U/L Total Protein 7.4 (6.4-8.2) g/dL Albumin 3.7 (3.4-5.0) g/dL Globulin 3.7 H (2.0-3.5) g/dL Albumin/Globulin Ratio 1.0 L (1.3-2.8) Meds: Medications Generic Name Dose Route Start Last Admin Trade Name Freq PRN Reason Stop Dose Admin Sodium Chloride 10 ml 02/07/18 21:49 02/07/18 22:43 Saline Flush FLUSH 10 ml ASDIRECTED PRN Administration Keep Vein Open Sodium Chloride 2.5 ml 02/07/18 21:49 Saline Flush FLUSH ASDIRECTED PRN Keep Vein Open Discontinued Medications Generic Name Dose Route Start Last Admin Trade Name Josephq PRN Reason Stop Dose Admin Ketorolac Tromethamine 30 mg 02/07/18 22:29 02/07/18 22:41 Toradol IVPUSH 02/07/18 22:30 30 mg ONETIME ONE Administration Departure - Departure Disposition: Home, Self-Care 01 Clinical Impression: Infection of right foot - Discharge Information Referrals: PCP,None [Primary Care Provider] - Forms: ED Department Discharge Additional Instructions: The following information is given to patients seen in the emergency department who are being discharged to home. This information is to outline your options for follow-up care. We provide all patients seen in our emergency department with a follow-up referral. The need for follow-up, as well as the timing and circumstances, are variable depending upon the specifics of your emergency department visit. If you don't have a primary care physician on staff, we will provide you with a referral. We always advise you to contact your personal physician following an emergency department visit to inform them of the circumstance of the visit and for follow-up with them and/or the need for any referrals to a consulting specialist. The emergency department will also refer you to a specialist when appropriate. This referral assures that you have the opportunity for followup care with a specialist. All of these measure are taken in an effort to provide you with optimal care, which includes your followup. Under all circumstances we always encourage you to contact your private physician who remains a resource for coordinating your care. When calling for followup care, please make the office aware that this follow-up is from your recent emergency room visit. If for any reason you are refused follow-up, please contact the [facility] emergency department at and ask to speak to the emergency department charge nurse. Dr Linda Mason [address] [place] [id number] Please call and schedule a follow-up appointment with the debt collection specialist tomorrow as this is a recurrent problem that he is managed in the past for you. Please start taking the Bactrim you have been given via [facility] and use the Hustler as needed until you're seen by the debt collection specialist. Elevate the foot and keep the area clean and dry using mild soap and water pat dry. Return to the ER as needed and As discussed <Ai Del Angel - Last Filed: 02/07/18 23:17> ED HPI GENERAL MEDICAL PROBLEM - History of Present Illness INITIAL COMMENTS - FREE TEXT/NARRATIVE: This is Dr. Del Angel dictating an addendum note as I assumed care of this case at 10 PM. I agree with history and physical as above and the crusting looks very honey crusted and there is no fluctuance or crepitus or soft tissue swelling appreciated. I do not see any active drainage from the area and there are no bony tenderness or deformities. We are currently awaiting his testing results and I will give him some Toradol for pain. Again I have stressed the need to follow-up with his debt collection specialist Dr. Mason as he is cared for a very similar issue back in September All testing results were reviewed by me and there is no evidence of any osteo- or gas in the x-rays and there is no change from prior. I will give the patient a prescription for Bactrim and a few Hustler that he can take until he can follow- up with a debt collection specialist. Impression: Recurrent right foot infection and pain stable Review of Systems - Review of Systems Review Of Systems: ROS reveals no pertinent complaints other than HPI. ED EXAM, GENERAL - Physical Exam Exam: See Below (See dictation) Departure - Departure Time of Disposition: 23:15 Condition: Good
[2018-02-07] MEDS ORDERED: Sodium Chloride 0.9% 10 ML Syringe FLUSH PRN (21:49)
[2018-02-07] MEDS ORDERED: Sodium Chloride 0.9% 2.5 ML Syringe FLUSH PRN (21:49)
[2018-02-07] MEDS ORDERED: Ketorolac 30 MG/ML SDV IVPUSH ONE (22:29)
[2018-02-07 22:57] LABS: CHLORIDE,CL 101 mmol/L (98-107); SODIUM,NA 137 mmol/L (136-148)
[2018-02-07] MEDS ORDERED: Acetaminophen/HYDROcodone 325-5 MG Tab PO ONE (23:19)
--- NOTE | 2018-02-08 10:46 | CR ---
EXAM DATE: 02/07/18 PATIENT'S AGE: 42 Patient: LORA SOLIZ Facility: [place], [place] Site . Site : 1975 Study: XRay Extremity Right foot [id number]/10/2018 10:46:12 PM Ordering Physician: Doctor Joseph Final Report: Indication: Right foot infection. Technique: Right foot 2 views Comparison: 10/20/2017 Findings: Bones: Alignment is normal. No fractures or bone lesions. The phalanges in the 3rd toe have been amputated. Joint spaces: Joint spaces are well maintained. No degenerative changes. Soft tissues: Unremarkable. Impression: No sign of osteomyelitis or soft tissue infection. No change from the prior exam. Dictated by Curtis Walker MD @ Feb 07 2018 10:47PM (Electronic Signature) Report Signed by Proxy. ANGELITO
== END 2018-02-07 23:42 | disposition home or self-care (01) ==
LOC: MW.ED 21:24
DX: L08.9 Local infection of the skin and subcutaneous tissue, unspecified (principal); Z88.1 Allergy status to other antibiotic agents
CPT/HCPCS: 36415; 73620; 80053; 85025; 87040; 96374; 99283; A9270; J1885